=== PATIENT | female | born 1935 | race Caucasian/White ===

== ENCOUNTER 2020-02-28 13:08 | Outpatient (CLI) | payer MEDICARE, BC | END 2020-02-28 23:59 | disposition home or self-care (01) | LOC: LAB 13:08 | PROVIDERS: ATTEND Internal Medicine Interventional Cardiology | DX: Z01.812 Encounter for preprocedural laboratory examination (principal); Z20.828 Contact with and (suspected) exposure to other viral communicable diseases | CPT/HCPCS: 87426; C9803; U0003 ==

== ENCOUNTER 2020-02-29 10:08 | Day surgery (SDC) | payer MEDICARE, BC ==
[2020-02-29 11:56] LABS: CALCIUM, SERUM 10.1 mg/dL (8.5-10.1); CARBON DIOXIDE 26 mmol/L (21-32); CHLORIDE 106 mmol/L (98-107); CREATININE 1.7 mg/dL (0.6-1.3); GLUCOSE 112 mg/dL (74-106); POTASSIUM 4.3 mmol/L (3.5-5.1); SODIUM SERUM 140 mmol/L (136-145); UREA NITROGEN, BLOOD 33 mg/dL (7-18)
[2020-02-29 12:02] LABS: ALANINE AMINOTRANSFERASE 33 U/L (12-78); ALBUMIN 3.6 g/dL (3.4-5.0); ALKALINE PHOSPHATASE 63 U/L (46-116); ASPARTATE AMINOTRANSFERASE 21 U/L (15-37); BILIRUBIN,TOTAL 0.7 mg/dL (0.2-1.0); TOTAL PROTEIN, SERUM 6.8 g/dL (6.4-8.2)
[2020-02-29] MEDS ORDERED: DRONEDARONE HYDROCHLORIDE 400 MG TABLET PO ONE (12:30)
== END 2020-02-29 14:10 | disposition home or self-care (01) ==
LOC: DS 10:08
PROVIDERS: ATTEND Internal Medicine Interventional Cardiology
DX: I48.92 Unspecified atrial flutter (principal); Z79.01 Long term (current) use of anticoagulants; J45.909 Unspecified asthma, uncomplicated; K21.9 Gastro-esophageal reflux disease without esophagitis; Z79.899 Other long term (current) drug therapy
CPT/HCPCS: 36415; 80053; 92960; 93005 ×2; J7030

== ENCOUNTER 2023-10-25 14:46 | Inpatient (IN) | payer MEDICARE, BC ==
[~2023-10-25] VITALS: Ht 154.9 cm; Wt 84.8 kg
[2023-10-25] MEDS: IV NS 0.9% 1,000 ML BAG IV ONE (15:20)
[2023-10-25 15:38] LABS: BASOPHILS # (AUTO) 0.1 K/uL (0.0-0.2); EOSINOPHILS % (AUTO) 0.1 % (0.0-6.0); HEMATOCRIT 37 % (33-45); HEMOGLOBIN 12.1 g/dL (11.5-14.8); LYMPHOCYTES # (AUTO) 1.2 K/uL (0.8-4.8); LYMPHOCYTES % (AUTO) 22.5 % (20.0-44.0); MEAN CORPUSCULAR HEMOGLOBIN 27 PG (26.0-33.0); MEAN CORPUSCULAR HGB CONC 33 g/dl (31.0-36.0); MEAN CORPUSCULAR VOLUME 83 fL (82-100); MONOCYTES # (AUTO) 1.2 K/uL (0.1-1.30); MONOCYTES % (AUTO) 22.9 % (2.0-12.0); NEUTROPHILS # (AUTO) 2.9 K/uL (1.8-8.9); NEUTROPHILS % (AUTO) 53.5 % (43.0-81.0); PLATELET COUNT (AUTO) 197 K/uL (150-450); RED BLOOD CELL COUNT(AUTO) 4.48 MIL/uL (4.0-5.2); RED CELL DISTRIBUTION WIDTH 14.4 % (11.5-15.0); WHITE BLOOD COUNT (AUTO) 5.5 K/uL (4.3-11.0)
[2023-10-25 15:53] LABS: ALANINE AMINOTRANSFERASE 14 U/L (12-78); ALBUMIN 3.1 g/dL (3.4-5.0); ALKALINE PHOSPHATASE 58 U/L (46-116); ASPARTATE AMINOTRANSFERASE 9 U/L (15-37); BILIRUBIN,DIRECT 0.1 mg/dL (0.0-0.2); BILIRUBIN,TOTAL 0.4 mg/dL (0.2-1.0); CALCIUM, SERUM 8.9 mg/dL (8.5-10.1); CARBON DIOXIDE 28 mmol/L (21-32); CHLORIDE 102 mmol/L (98-107); CREATININE 1.8 mg/dL (0.6-1.3); GLUCOSE 103 mg/dL (74-106); POTASSIUM 3.8 mmol/L (3.5-5.1); SODIUM SERUM 140 mmol/L (136-145); TOTAL PROTEIN, SERUM 7.1 g/dL (6.4-8.2); UREA NITROGEN, BLOOD 37 mg/dL (7-18)
[2023-10-25 15:56] LABS: LACTIC ACID 1.3 mmol/L (0.4-2.0)
[2023-10-25 16:37] LABS: LYMPHOCYTES % (MANUAL) 21 % (16-48); MONOCYTES % (MANUAL) 20 % (0-11.0); NEUTROPHILS % (MANUAL) 59 (42-76); PLATELET ESTIMATE ADEQUATE
[2023-10-25 16:38] LABS: STOMATOCYTES 1+
[2023-10-25] MEDS ORDERED: APIX2.5T PO (17:47)
[2023-10-25] MEDS ORDERED: FOLI0.4T6 PO (17:47)
[2023-10-25] MEDS ORDERED: LATA2.5D15 EACHEYE (17:47)
[2023-10-25] MEDS ORDERED: METO2.5T2 PO (17:47)
[2023-10-25] MEDS ORDERED: LEVO125T8 PO (17:47)
[2023-10-25] MEDS ORDERED: EMPA10TA PO (17:47)
[2023-10-25 17:57] LABS: APPEARANCE,URINE CLEAR (CLEAR); BILIRUBIN,URINE NEGATIVE (NEGATIVE); BLOOD, URINE TRACE-INTA Ery/uL (NEGATIVE); KETONES,URINE NEGATIVE (NEGATIVE); LEUKOCYTE ESTERASE ,URINE NEGATIVE (NEGATIVE); NITRITE, URINE NEGATIVE (NEGATIVE); PROTEIN,URINE NEGATIVE (NEGATIVE); UGLUCOSE 2+ mg/dL (NEGATIVE); UROBILINOGEN,URINE 0.2 EU/dL (0.2)
[2023-10-25] MEDS ORDERED: ZOLPIDEM TARTRATE 5 MG TABLET PO PRN (18:00)
[2023-10-25] MEDS ORDERED: ONDANSETRON HCL/PF 4 MG/2 ML VIAL IVP PRN (18:00)
[2023-10-25] MEDS ORDERED: MAGNESIUM HYDROXIDE 30 ML UDC PO PRN (18:00)
[2023-10-25] MEDS ORDERED: DEXTROSE 50%-WATER 50 ML DISP.SYRIN IV PRN (18:00)
[2023-10-25] MEDS ORDERED: Z GUARD REMEDY 4 OZ OINT TP PRN (18:00)
[2023-10-25] MEDS ORDERED: MAG HYDROX/AL HYDROX/SIMETH 30 ML UDC PO PRN (18:00)
[2023-10-25 18:10] LABS: COLOR,URINE LIGHT YELLOW (YELLOW)
[2023-10-25 18:12] LABS: ADD URINE CULTURE YES; BACTERIA,URINE 1+ /HPF (None Seen); SQUAMOUS EPITHELIAL CELL,UR 0-2 /HPF (None Seen)
[2023-10-25 18:13] LABS: FINE GRANULAR CASTS,URINE Rare /LPF (None Seen)
[2023-10-25 20:00] VITALS: BP 123/59; TEMP 99; O2SAT 98
[2023-10-25] MEDS: APIXABAN 2.5 MG TABLET PO SCH (20:19)
[2023-10-25] MEDS: IV NS 0.9% 1,000 ML IV PRN (20:21)
[2023-10-25] MEDS: LATANOPROST EYE DROP 0.005% 2.5 ML BOTTLE EACHEYE SCH (21:16)
[2023-10-25] MEDS: ACETAMINOPHEN 325 MG TABLET PO PRN (21:40)
[2023-10-25] MEDS: INSULIN REGULAR, HUMAN 100 UNIT/ML 3 ML VIAL SQ PRN (22:34)
[2023-10-25] MEDS: BLOOD SUGAR DIAGNOSTIC 1 EACH STRIP IN SCH (22:35)
[2023-10-26] VITALS (8 sets, daily range): BP systolic 114–136; BP diastolic 62–68; TEMP 97.9–98.8; O2SAT 95–100
[2023-10-26] MEDS: LEVOTHYROXINE SODIUM 125 MCG TABLET PO SCH (08:05)
[2023-10-26 08:15] LABS: BASOPHILS % (AUTO) 0.7 % (0.0-2.0); EOSINOPHILS % (AUTO) 0.3 % (0.0-6.0); HEMATOCRIT 37 % (33-45); HEMOGLOBIN 11.6 g/dL (11.5-14.8); LYMPHOCYTES # (AUTO) 1.5 K/uL (0.8-4.8); MEAN CORPUSCULAR HEMOGLOBIN 26 PG (26.0-33.0); MEAN CORPUSCULAR HGB CONC 32 g/dl (31.0-36.0); MEAN CORPUSCULAR VOLUME 83 fL (82-100); MONOCYTES % (AUTO) 20.5 % (2.0-12.0); NEUTROPHILS # (AUTO) 2.5 K/uL (1.8-8.9); NEUTROPHILS % (AUTO) 49.5 % (43.0-81.0); PLATELET COUNT (AUTO) 185 K/uL (150-450); RED BLOOD CELL COUNT(AUTO) 4.39 MIL/uL (4.0-5.2); RED CELL DISTRIBUTION WIDTH 14.4 % (11.5-15.0); WHITE BLOOD COUNT (AUTO) 5.1 K/uL (4.3-11.0)
[2023-10-26] MEDS: EMPAGLIFLOZIN 10 MG TABLET PO SCH (08:44)
[2023-10-26] MEDS: FOLIC ACID 1 MG TABLET PO SCH (08:44)
[2023-10-26 10:39] LABS: ALANINE AMINOTRANSFERASE 13 U/L (12-78); ALBUMIN 2.8 g/dL (3.4-5.0); ALKALINE PHOSPHATASE 48 U/L (46-116); ASPARTATE AMINOTRANSFERASE 9 U/L (15-37); BILIRUBIN,TOTAL 0.5 mg/dL (0.2-1.0); CALCIUM, SERUM 8.6 mg/dL (8.5-10.1); CARBON DIOXIDE 25 mmol/L (21-32); CHLORIDE 107 mmol/L (98-107); CREATININE 1.7 mg/dL (0.6-1.3); GLUCOSE 75 mg/dL (74-106); MAGNESIUM 1.9 mg/dL (1.8-2.4); PHOSPHORUS 2.9 mg/dL (2.5-4.9); POTASSIUM 3.5 mmol/L (3.5-5.1); SODIUM SERUM 143 mmol/L (136-145); TOTAL PROTEIN, SERUM 6.4 g/dL (6.4-8.2); UREA NITROGEN, BLOOD 31 mg/dL (7-18)
[2023-10-26 11:01] LABS: BASOPHILS % (MANUAL) 0 % (0.0-2.0); EOSINOPHILS % (MANUAL) 1 % (0-4); LYMPHOCYTES % (MANUAL) 31 % (16-48); MONOCYTES % (MANUAL) 15 % (0-11.0); NEUTROPHILS % (MANUAL) 53 (42-76)
[2023-10-26 11:02] LABS: ANISOCYTOSIS 1+; PLATELET ESTIMATE ADEQUATE
[2023-10-26] MEDS ORDERED: GUAIFENESIN/D-METHORPHAN HB 5 ML UDC PO PRN (14:30)
[2023-10-26] MEDS: GUAIFENESIN LA 600 MG TABLET.SA PO SCH (21:18)
[2023-10-27] VITALS: BP 131/68; TEMP 98.1; O2SAT 95
[2023-10-27 04:00] VITALS: BP 112/57; TEMP 98.6; O2SAT 95
[2023-10-27 07:46] LABS: BASOPHILS % (AUTO) 0.5 % (0.0-2.0); EOSINOPHILS % (AUTO) 0.4 % (0.0-6.0); HEMATOCRIT 37 % (33-45); HEMOGLOBIN 11.8 g/dL (11.5-14.8); LYMPHOCYTES # (AUTO) 1.5 K/uL (0.8-4.8); LYMPHOCYTES % (AUTO) 29.6 % (20.0-44.0); MEAN CORPUSCULAR HEMOGLOBIN 27 PG (26.0-33.0); MEAN CORPUSCULAR HGB CONC 32 g/dl (31.0-36.0); MEAN CORPUSCULAR VOLUME 83 fL (82-100); MONOCYTES # (AUTO) 0.7 K/uL (0.1-1.30); MONOCYTES % (AUTO) 13.7 % (2.0-12.0); NEUTROPHILS # (AUTO) 2.8 K/uL (1.8-8.9); NEUTROPHILS % (AUTO) 55.8 % (43.0-81.0); PLATELET COUNT (AUTO) 187 K/uL (150-450); RED BLOOD CELL COUNT(AUTO) 4.43 MIL/uL (4.0-5.2); RED CELL DISTRIBUTION WIDTH 14.3 % (11.5-15.0)
[2023-10-27 08:00] VITALS: BP 127/72; TEMP 98.1; O2SAT 95
[2023-10-27 08:20] LABS: CALCIUM, SERUM 8.1 mg/dL (8.5-10.1); CARBON DIOXIDE 24 mmol/L (21-32); CHLORIDE 106 mmol/L (98-107); CREATININE 1.5 mg/dL (0.6-1.3); GLUCOSE 81 mg/dL (74-106); MAGNESIUM 1.9 mg/dL (1.8-2.4); PHOSPHORUS 2.6 mg/dL (2.5-4.9); POTASSIUM 3.5 mmol/L (3.5-5.1); SODIUM SERUM 140 mmol/L (136-145); UREA NITROGEN, BLOOD 27 mg/dL (7-18)
== END 2023-10-27 15:51 | disposition home or self-care (01) | DRG 178 ==
LOC: ER 15:17 → TELE-TD 18:11 → TELE1 19:10 → MEDSG1 10-27 08:34
PROVIDERS: ADMIT Nurse Practitioner Acute Care; ATTEND Nurse Practitioner Family
DX: U07.1 COVID-19 (principal); E44.1 Mild protein-calorie malnutrition; K56.609 Unspecified intestinal obstruction, unspecified as to partial versus complete obstruction; I12.9 Hypertensive chronic kidney disease with stage 1 through stage 4 chronic kidney disease, or unspecified chronic kidney disease; N18.9 Chronic kidney disease, unspecified; Z78.9 Other specified health status; Z88.1 Allergy status to other antibiotic agents; Z79.84 Long term (current) use of oral hypoglycemic drugs; Z79.890 Hormone replacement therapy; Z79.01 Long term (current) use of anticoagulants; Z79.899 Other long term (current) drug therapy; I25.10 Atherosclerotic heart disease of native coronary artery without angina pectoris; E03.9 Hypothyroidism, unspecified; J44.9 Chronic obstructive pulmonary disease, unspecified; Z98.890 Other specified postprocedural states; E66.01 Morbid (severe) obesity due to excess calories; E86.0 Dehydration; E88.09 Other disorders of plasma-protein metabolism, not elsewhere classified; G47.33 Obstructive sleep apnea (adult) (pediatric); I48.91 Unspecified atrial fibrillation; Z68.35 Body mass index [BMI] 35.0-35.9, adult
CPT/HCPCS: 36415; 71045-TC; 80048-TC; 80053-TC; 80076-TC; 81001; 82962-TC; 83605-TC; 83735-TC; 84100-TC; 84484-TC; 85025-TC; 85378-TC; 86140-TC; 87040-TC; 87086-TC; A4223; G0378; J1815; J7030

== ENCOUNTER 2025-03-13 14:40 | Inpatient (IN) | payer MEDICARE, BC ==
[~2025-03-13] VITALS: Ht 154.9 cm; Wt 86.2 kg
[~2025-03-13 14:40] MED LIST: APIX2.5T PO; EMPA10TA PO; FOLI0.4T6 PO; LATA2.5D15 EACHEYE; LEVO125T8 PO; METO2.5T2 PO
[2025-03-13 15:44] LABS: PLATELET COUNT (AUTO) 208 K/uL (150-450); RED BLOOD CELL COUNT(AUTO) 4.64 MIL/uL (4.0-5.2); RED CELL DISTRIBUTION WIDTH 15.1 % (11.5-15.0); WHITE BLOOD COUNT (AUTO) 7.2 K/uL (4.3-11.0)
[2025-03-13 16:07] LABS: ASPARTATE AMINOTRANSFERASE 16 U/L (15-37); CALCIUM, SERUM 9.5 mg/dL (8.5-10.1); CREATININE 1.9 mg/dL (0.6-1.3); SODIUM SERUM 137 mmol/L (136-145); TOTAL PROTEIN, SERUM 7.0 g/dL (6.4-8.2); UREA NITROGEN, BLOOD 40 mg/dL (7-18)
[2025-03-13 16:28] LABS: NT-PRO BNP 852 pg/mL (0-125)
[2025-03-13] MEDS ORDERED: DILTIAZEM HCL 25 MG IV ONE (17:26)
[2025-03-13] MEDS ORDERED: FAMO20TA8 PO (17:27)
[2025-03-13] MEDS ORDERED: PSYL0.4C2 PO (17:27)
[2025-03-13] MEDS ORDERED: MONT10TA22 PO (17:27)
[2025-03-13] MEDS ORDERED: VIT1CAPS9 PO (17:27)
[2025-03-13 17:28] LABS: APPEARANCE,URINE CLEAR (CLEAR); BLOOD, URINE NEGATIVE Ery/uL (NEGATIVE); LEUKOCYTE ESTERASE ,URINE 1+ (NEGATIVE); NITRITE, URINE NEGATIVE (NEGATIVE); UGLUCOSE 3+ mg/dL (NEGATIVE)
[2025-03-13 17:29] LABS: ADD URINE CULTURE YES; SQUAMOUS EPITHELIAL CELL,UR Few /HPF (None Seen)
[2025-03-13] MEDS: DILTIAZEM HCL 50 MG IV IV ONE (17:32)
[2025-03-13] MEDS ORDERED: METOPROLOL TARTRATE INJ 5 MG/5 ML AMPUL ONE (19:31)
[2025-03-13] MEDS: METOPROLOL TARTRATE INJ 5 MG/5 ML AMPUL IVP PRN (19:55)
[2025-03-13 20:00] VITALS: BP 99/56; TEMP 97.5; O2SAT 93
[2025-03-13] MEDS ORDERED: ONDANSETRON HCL/PF 4 MG/2 ML VIAL IVP PRN (20:30)
[2025-03-13] MEDS: METOLAZONE 2.5 MG TABLET PO SCH (20:30)
[2025-03-13] MEDS ORDERED: MAG HYDROX/AL HYDROX/SIMETH 30 ML UDC PO PRN (20:30)
[2025-03-13] MEDS ORDERED: MAGNESIUM HYDROXIDE 30 ML UDC PO PRN (20:30)
[2025-03-13] MEDS ORDERED: ACETAMINOPHEN 325 MG TABLET PO PRN (20:30)
[2025-03-13] MEDS ORDERED: Z GUARD REMEDY 4 OZ OINT TP PRN (20:30)
[2025-03-13] MEDS ORDERED: HYDROCODONE/APAP 5/325MG TABLET PO PRN (20:30)
[2025-03-13] MEDS ORDERED: ZOLPIDEM TARTRATE 5 MG TABLET PO PRN (20:30)
[2025-03-13] MEDS: CEPHALEXIN MONOHYDRATE 500 MG CAPSULE PO SCH (21:21)
[2025-03-13] MEDS: MONTELUKAST SODIUM (10MG) 10 MG TABLET PO SCH (21:21)
[2025-03-13] MEDS: LATANOPROST EYE DROP 0.005% 2.5 ML BOTTLE EACHEYE SCH (21:21)
[2025-03-14] VITALS: BP 95/65; TEMP 97.5; O2SAT 95
[2025-03-14 04:00] VITALS: BP 105/75; TEMP 97.7; O2SAT 96
[2025-03-14] MEDS ORDERED: PANTOPRAZOLE 40 MG TABLET.DR PO SCH (07:30)
[2025-03-14 08:00] VITALS: BP 98/66; TEMP 97.7; O2SAT 96
[2025-03-14 08:20] LABS: PLATELET COUNT (AUTO) 204 K/uL (150-450); RED BLOOD CELL COUNT(AUTO) 4.27 MIL/uL (4.0-5.2); RED CELL DISTRIBUTION WIDTH 15.1 % (11.5-15.0); WHITE BLOOD COUNT (AUTO) 6.9 K/uL (4.3-11.0)
[2025-03-14 08:33] LABS: CALCIUM, SERUM 9.3 mg/dL (8.5-10.1); CREATININE 1.9 mg/dL (0.6-1.3); PHOSPHORUS 2.9 mg/dL (2.5-4.9); SODIUM SERUM 139.0 mmol/L (136-145); UREA NITROGEN, BLOOD 42.0 mg/dL (7-18)
[2025-03-14] MEDS: EMPAGLIFLOZIN 10 MG TABLET PO SCH (08:48)
[2025-03-14] MEDS: FOLIC ACID 1 MG TABLET PO SCH (08:48)
[2025-03-14] MEDS: FAMOTIDINE (20 MG) 20 MG TABLET PO SCH (08:48)
[2025-03-14] MEDS: MULTIVITAMIN/LUTEIN/MINERALS 1 TAB PO SCH (08:48)
[2025-03-14] MEDS: LEVOTHYROXINE SODIUM 125 MCG TABLET PO SCH (08:48)
[2025-03-14] MEDS: APIXABAN 2.5 MG TABLET PO SCH (08:49)
[2025-03-14] MEDS ORDERED: AMIODARONE 450 MG in IV D5W 250 ML IV PRN (09:00)
[2025-03-14 09:05] LABS: LDL 114.0 mg/dL (0-99)
[2025-03-14] MEDS: AMIODARONE 150 MG in IV D5W 100 ML IV ONE (09:40)
[2025-03-14] MEDS: AMIODARONE 450 MG in IV D5W 241 ML IV PRN (10:05)
[2025-03-14 12:00] VITALS: BP 95/58; TEMP 98.2; O2SAT 97
[2025-03-14 16:00] VITALS: BP 126/57; TEMP 98; O2SAT 97
[2025-03-14 20:00] VITALS: BP 104/71; TEMP 98.1; O2SAT 97
[2025-03-15] VITALS: BP 134/84; TEMP 97.7; O2SAT 95
[2025-03-15 04:00] VITALS: BP 113/67; TEMP 97.8; O2SAT 100
[2025-03-15 08:00] VITALS: BP 119/66; TEMP 98.6; O2SAT 100
[2025-03-15 08:27] LABS: PLATELET COUNT (AUTO) 213 K/uL (150-450); RED BLOOD CELL COUNT(AUTO) 4.77 MIL/uL (4.0-5.2); RED CELL DISTRIBUTION WIDTH 14.8 % (11.5-15.0); WHITE BLOOD COUNT (AUTO) 7.9 K/uL (4.3-11.0)
[2025-03-15 09:04] LABS: ASPARTATE AMINOTRANSFERASE 14.0 U/L (15-37); CALCIUM, SERUM 9.0 mg/dL (8.5-10.1); CREATININE 2.0 mg/dL (0.6-1.3); PHOSPHORUS 2.7 mg/dL (2.5-4.9); SODIUM SERUM 139.0 mmol/L (136-145); TOTAL PROTEIN, SERUM 6.6 g/dL (6.4-8.2); UREA NITROGEN, BLOOD 40.0 mg/dL (7-18)
[2025-03-15 12:00] VITALS: BP 115/84; TEMP 97.7; O2SAT 96
[2025-03-15 16:00] VITALS: BP 114/72; TEMP 97.5; O2SAT 97
[2025-03-15 17:21] LABS: CREATININE, URINE 19.2 MG/DL (30.0-125.0); URINE SODIUM, RANDOM 59.0 mmol/l (40-220); URINE TOTAL PROTEIN 8.6 mg/dL (0-11.9)
[2025-03-15 20:00] VITALS: BP 106/64; TEMP 98.8; O2SAT 100
[2025-03-16] VITALS (26 sets, daily range): BP systolic 76–119; BP diastolic 34–68; TEMP 97.8–98.5; O2SAT 97–100
[2025-03-16 04:44] LABS: PLATELET COUNT (AUTO) 225 K/uL (150-450); RED BLOOD CELL COUNT(AUTO) 4.95 MIL/uL (4.0-5.2); RED CELL DISTRIBUTION WIDTH 14.8 % (11.5-15.0); WHITE BLOOD COUNT (AUTO) 11.1 K/uL (4.3-11.0)
[2025-03-16 05:07] LABS: ASPARTATE AMINOTRANSFERASE 14.0 U/L (15-37); CALCIUM, SERUM 9.4 mg/dL (8.5-10.1); CREATININE 2.1 mg/dL (0.6-1.3); INR 1.04 (0.91-1.10); PHOSPHORUS 2.7 mg/dL (2.5-4.9); SODIUM SERUM 136.0 mmol/L (136-145); TOTAL PROTEIN, SERUM 7.2 g/dL (6.4-8.2); UREA NITROGEN, BLOOD 40.0 mg/dL (7-18)
[2025-03-16] MEDS ORDERED: ANESTHESIA TRAY IN PYXIS 1 EA TRAY MC ONE (08:23)
[2025-03-16] MEDS: DRONEDARONE HYDROCHLORIDE 400 MG TABLET PO SCH (10:26)
[2025-03-16] MEDS ORDERED: DRON400T6 PO (11:21)
[2025-03-16] MEDS ORDERED: CEPH-570 PO (11:49)
== END 2025-03-16 12:45 | disposition home health service (06) | DRG 308 ==
LOC: ER 15:57 → TELE1 18:29 → TELE-TD 03-14 09:48 → ICU 03-16 07:00
PROVIDERS: ADMIT Nurse Practitioner Acute Care
PROC: 5A2204Z Restoration of Cardiac Rhythm, Single (ICD-10-PCS; principal; 2025-03-16)
DX: I48.92 Unspecified atrial flutter (principal); N17.0 Acute kidney failure with tubular necrosis; I50.9 Heart failure, unspecified; N39.0 Urinary tract infection, site not specified; Z79.01 Long term (current) use of anticoagulants; I13.0 Hypertensive heart and chronic kidney disease with heart failure and stage 1 through stage 4 chronic kidney disease, or unspecified chronic kidney disease; E11.22 Type 2 diabetes mellitus with diabetic chronic kidney disease; E66.9 Obesity, unspecified; J44.9 Chronic obstructive pulmonary disease, unspecified; E03.9 Hypothyroidism, unspecified; N18.30 Chronic kidney disease, stage 3 unspecified; I48.91 Unspecified atrial fibrillation; K21.9 Gastro-esophageal reflux disease without esophagitis; Z98.890 Other specified postprocedural states; Z90.11 Acquired absence of right breast and nipple; Z88.1 Allergy status to other antibiotic agents; Z79.84 Long term (current) use of oral hypoglycemic drugs; Z79.890 Hormone replacement therapy; Z79.899 Other long term (current) drug therapy; H40.9 Unspecified glaucoma; Z68.35 Body mass index [BMI] 35.0-35.9, adult; M89.8X9 Other specified disorders of bone, unspecified site; I25.10 Atherosclerotic heart disease of native coronary artery without angina pectoris; Z85.3 Personal history of malignant neoplasm of breast
CPT/HCPCS: 36415; 71045-TC; 76770-TC; 80048-TC; 80053-TC; 80061-TC; 80076-TC; 81001; 82570-TC; 83735-TC; 83880; 84100-TC; 84300-TC; 84443-TC; 84484-TC; 85025-TC; 85610-TC; 85730-TC; 87086-TC; 92960; 93307-TC; 97116-TC; 97530-TC; A4223; G0378; J0282; J3490; J7030; J7060